=== PATIENT | female | born 1995 | race Caucasian/White ===

== ENCOUNTER 2020-10-16 21:18 | Emergency (ER) | payer OTHER ==
[2020-10-16 22:46] LABS: Absolute Lymphocytes (CBC) 1.6 K/uL (0.7-4.9); Basophils % 0.9 % (0-1.3); Lymphocytes % 35.8 % (15.3-44.8); MPV 8.3 fL (7.6-11.3); RBC Red Blood Cell Count 3.83 M/uL (3.86-4.86)
[2020-10-16 23:11] LABS: ALT/SGPT 18 U/L (12-78); AST/SGOT 12 U/L (15-37); Albumin 3.8 g/dL (3.4-5.0); BUN Blood Urea Nitrogen 16 mg/dL (7-18); Bicarbonate 26 mmol/L (21-32); Bilirubin Total 0.3 mg/dL (0.2-1.0); Glucose Level 83 mg/dL (74-106); Potassium 4.3 mmol/L (3.5-5.1); Protein, Total 6.9 g/dL (6.4-8.2); Sodium Level 142 mmol/L (136-145); Troponin (Emerg Dept Use Only) < 0.02 ng/mL (0.0-0.045)
[2020-10-16 23:12] LABS: Alkaline Phosphatase ND U/L (45-117)
[2020-10-16] MEDS ORDERED: NA CHLORIDE 0.9% 0 ML ONE (23:23)
--- NOTE | 2020-10-16 23:23 | ER ---
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 Coronavirus screen: Client denies travel out of the [place] in the last 14 days. At this time, the client does not indicate any symptoms associated with coronavirus-19. Ebola Screen: Patient negative for fever greater than or equal to 101.5 degrees Fahrenheit, and additional compatible Ebola Virus Disease symptoms Patient denies exposure to infectious person. Patient denies travel to an Ebola-affected area in the 21 days before illness onset. No symptoms or risks identified at this time. Initial Sepsis Screen: Does the patient meet any 2 criteria? No. Patient's initial sepsis screen is negative. Does the patient have a suspected source of infection? No. Patient's initial sepsis screen is negative. Risk Assessment: Do you want to hurt yourself or someone else? Patient reports no desire to harm self or others. Onset of symptoms was October 16, 2020. 21:41 Method Of Arrival: EMS: [facility]5 21:41 Acuity: ЮЛИЯ 3 dm5 Historical: - Allergies: 21:53 No Known Allergies; dm5 - Home Meds: 22:30 Seroquel 100 mg Oral tab 1 tab daily [Active]; Seroquel 200 mg Oral tab 1 tab nightly dm5 [Active]; levothyroxine 175 mcg tab 1 tab once daily [Active]; - PMHx: 21:53 Autism; Bipolar disorder; dm5 - PSHx: 21:53 None; dm5 - Family history:: not pertinent. Assessment: 22:40 Reassessment: updated guardian on POC. dm5 Vital Signs: 21:15 BP 121 / 75; Pulse 121; Resp 22; Temp 98.6; dm5 21:30 BP 108 / 76; Pulse 108; Resp 24; Pulse Ox 99% on R/A; dm5 21:45 BP 104 / 72; Pulse 104; Resp 25; Pulse Ox 98% on R/A; dm5 22:00 BP 101 / 71; Pulse 101; Resp 22; Pulse Ox 98% on R/A; dm5 22:15 BP 103 / 69; Pulse 103; Resp 20; Temp 98; Pulse Ox 99% on R/A; dm5 22:30 BP 109 / 84; Pulse 109; Resp 17; Pulse Ox 99% ; dm5 22:45 BP 94 / 68; Pulse 94; Resp 24; Pulse Ox 99% on R/A; dm5 23:00 BP 104 / 76; Pulse 104; Resp 20; Pulse Ox 99% on R/A; dm5 10/17 00:33 BP 128 / 77 LA Supine (man/reg); Pulse 79 LA; Resp 22 S; Temp 98.3(O); Pulse Ox 100% on jb5 R/A; ED Course: 10/16 21:26 Patient arrived in ED. dm5 21:38 Geoffrey Ackerman MD is Attending Physician. jah 21:41 Génesis Germain, RN is Primary Nurse. dm5 21:44 Triage completed. dm5 22:54 Chest Single View XRAY In Process Unspecified. EDMS 10/17 00:17 Inserted saline lock: 20 gauge in right antecubital area, using aseptic technique. jb5 Blood collected. 00:17 Warm blanket given. Diet tray ordered. PO fluids given. Verbal reassurance given. jb5 00:34 Removal of peripheral IV. Catheter intact, dressing applied. jb5 Administered Medications: 10/16 23:17 Drug: NS 0.9% 1000 ml Route: IV; Rate: 1 bolus; Site: right antecubital; dm5 23:24 Not Given (other intervention used.): NS 0.9% 500 ml IV at bolus once dm5 Outcome: 23:23 Discharge ordered by . [facility] 10/17 00:37 Patient left the ED. dm5 Signatures: Dispatcher [employer] Génesis Leslie, RN RN dm5 Geoffrey Ackerman MD MD cha Broussard, Jennifer jb5
--- NOTE | 2020-10-16 23:23 | EDPHYS ---
Physician Documentation [facility] Name: Morteza Santos Age: 25 yrs Sex: Female : 1995 Arrival Date: 10/16/2020 Time: 21:26 Bed 23 Private MD: ED Physician Geoffrey Ackerman HPI: 10/16 22:21 This 25 yrs old Female presents to ER via EMS with complaints of Chest Pain. jah 22:21 The patient or guardian reports chest pain that is located primarily in the anterior jah chest wall, bilaterally. The pain does not radiate. Associated signs and symptoms: Pertinent positives: cough. The chest pain is described as aching. Duration: The patient or guardian reports a single episode, that is still ongoing. Severity of pain: At its worst the pain was mild in the emergency department the pain is unchanged. The patient has not experienced similar symptoms in the past. Historical: - Allergies: 21:53 No Known Allergies; dm5 - Home Meds: 22:30 Seroquel 100 mg Oral tab 1 tab daily [Active]; Seroquel 200 mg Oral tab 1 tab nightly dm5 [Active]; levothyroxine 175 mcg tab 1 tab once daily [Active]; - PMHx: 21:53 Autism; Bipolar disorder; dm5 - PSHx: 21:53 None; dm5 - Family history:: not pertinent. ROS: 22:21 Constitutional: Negative for fever, chills, and weight loss, Eyes: Negative for injury, jah pain, redness, and discharge, ENT: Negative for injury, pain, and discharge, Neck: Negative for injury, pain, and swelling, Abdomen/GI: Negative for abdominal pain, nausea, vomiting, diarrhea, and constipation, Back: Negative for injury and pain, : Negative for injury, bleeding, discharge, and swelling, MS/Extremity: Negative for injury and deformity, Skin: Negative for injury, rash, and discoloration, Neuro: Negative for headache, weakness, numbness, tingling, and seizure, Psych: Negative for depression, anxiety, suicide ideation, homicidal ideation, and hallucinations, Allergy/Immunology: Negative for hives, rash, and allergies, Endocrine: Negative for neck swelling, polydipsia, polyuria, polyphagia, and marked weight changes, Hematologic/Lymphatic: Negative for swollen nodes, abnormal bleeding, and unusual bruising. 22:21 Cardiovascular: Positive for chest pain. 22:21 Respiratory: Positive for cough. Exam: 22:21 Constitutional: This is a well developed, well nourished patient who is awake, alert, jah and in no acute distress. Head/Face: Normocephalic, atraumatic. Eyes: Pupils equal round and reactive to light, extra-ocular motions intact. Lids and lashes normal. Conjunctiva and sclera are non-icteric and not injected. Cornea within normal limits. Periorbital areas with no swelling, redness, or edema. ENT: Nares patent. No nasal discharge, no septal abnormalities noted. Tympanic membranes are normal and external auditory canals are clear. Oropharynx with no redness, swelling, or masses, exudates, or evidence of obstruction, uvula midline. Mucous membranes moist. Neck: Trachea midline, no thyromegaly or masses palpated, and no cervical lymphadenopathy. Supple, full range of motion without nuchal rigidity, or vertebral point tenderness. No Meningismus. Chest/axilla: Normal chest wall appearance and motion. Nontender with no deformity. No lesions are appreciated. Cardiovascular: Regular rate and rhythm with a normal S1 and S2. No gallops, murmurs, or rubs. Normal PMI, no JVD. No pulse deficits. Respiratory: Lungs have equal breath sounds bilaterally, clear to auscultation and percussion. No rales, rhonchi or wheezes noted. No increased work of breathing, no retractions or nasal flaring. Abdomen/GI: Soft, non-tender, with normal bowel sounds. No distension or tympany. No guarding or rebound. No evidence of tenderness throughout. Back: No spinal tenderness. No costovertebral tenderness. Full range of motion. Skin: Warm, dry with normal turgor. Normal color with no rashes, no lesions, and no evidence of cellulitis. MS/ Extremity: Pulses equal, no cyanosis. Neurovascular intact. Full, normal range of motion. Neuro: Awake and alert, GCS 15, oriented to person, place, time, and situation. Cranial nerves II-XII grossly intact. Motor strength 5/5 in all extremities. Sensory grossly intact. Cerebellar exam normal. Normal gait. Psych: Awake, alert, with orientation to person, place and time. Behavior, mood, and affect are within normal limits. 22:21 Musculoskeletal/extremity: DVT Exam: No signs of deep vein thrombosis. no pain, no swelling, no tenderness, negative Homans' sign noted on exam, no appreciated bluish discoloration, no erythema, no increased warmth. 23:23 ECG was reviewed by the Attending Physician. [facility] Vital Signs: 21:15 BP 121 / 75; Pulse 121; Resp 22; Temp 98.6; dm5 21:30 BP 108 / 76; Pulse 108; Resp 24; Pulse Ox 99% on R/A; dm5 21:45 BP 104 / 72; Pulse 104; Resp 25; Pulse Ox 98% on R/A; dm5 22:00 BP 101 / 71; Pulse 101; Resp 22; Pulse Ox 98% on R/A; dm5 22:15 BP 103 / 69; Pulse 103; Resp 20; Temp 98; Pulse Ox 99% on R/A; dm5 22:30 BP 109 / 84; Pulse 109; Resp 17; Pulse Ox 99% ; dm5 22:45 BP 94 / 68; Pulse 94; Resp 24; Pulse Ox 99% on R/A; dm5 23:00 BP 104 / 76; Pulse 104; Resp 20; Pulse Ox 99% on R/A; dm5 10/17 00:33 BP 128 / 77 LA Supine (man/reg); Pulse 79 LA; Resp 22 S; Temp 98.3(O); Pulse Ox 100% on jb5 R/A; MDM: 10/16 21:38 Patient medically screened. [facility] 22:24 Differential diagnosis: abnormal EKG, coronary artery disease chest wall pain, jah pericarditis, stable angina, unstable angina. HEART Score: History: Slightly Suspicious (0), ECG: Normal (0), Age: < or = 45 years (0), Risk Factors: Troponin: < or = 1 x Normal Limit (0), Total Score = 0. The patient's deep vein thrombosis risk score was calculated as follows: Total Score: 0. This patient was found to be at low risk for a deep vein thrombosis by using the Well's assessment criteria. The patient's pulmonary embolism risk score was calculated as follows: Total Score: 0-2 points. This patient was found to be at low risk for a pulmonary embolism by using the Well's assessment criteria. CLEMENCIA Risk Score: TOTAL SCORE = 0. Data reviewed: vital signs, nurses notes, lab test result(s), EKG, radiologic studies, plain films. Data interpreted: cafeteria monitor: rate is 65 beats/min, rhythm is regular, Pulse oximetry: on room air. Test interpretation: by ED physician or midlevel provider: ECG, plain radiologic studies. Counseling: I had a detailed discussion with the patient and/or guardian regarding: the historical points, exam findings, and any diagnostic results supporting the discharge/admit diagnosis, lab results, radiology results, the need for outpatient follow up, for definitive care, a family practitioner. 10/16 22:20 Order name: CBC with Diff; Complete Time: 23:[address] [facility] 10/16 22:20 Order name: Comprehensive Metabolic Panel; Complete Time: 23:[address] [facility] 10/16 22:20 Order name: D-Dimer; Complete Time: 23:[address] [facility] 10/16 22:20 Order name: Troponin (emerg Dept Use Only); Complete Time: 23:[address] [facility] 10/16 22:20 Order name: Urine Dipstick-Ancillary (obtain specimen); Complete Time: 00:[address] [facility] 10/16 22:20 Order name: EKG; Complete Time: 22:[address] [facility] 10/16 22:20 Order name: Chest Single View XRAY [facility] 10/17 00:14 Order name: COVID-19/FLU A+B EDMS 10/17 00:14 Order name: Urine Dipstick--Ancillary (enter results) [facility] 10/17 00:16 Order name: Urine --Ancillary (enter results) [facility] 10/16 22:20 Order name: EKG - Nurse/Tech; Complete Time: 00:[address] [facility] 10/16 22:20 Order name: Urine Test (obtain specimen); Complete Time: 00:[address] [facility] EC:23 Rate is 59 beats/min. Rhythm is regular. QRS [place] is Normal. [place] interval is normal. QRS jah interval is normal. QT interval is normal. No Q waves. T waves are Normal. No ST changes noted. Clinical impression: Sinus bradycardia. Interpreted by me. Reviewed by me. Administered Medications: 23:17 Drug: NS 0.9% 1000 ml Route: IV; Rate: 1 bolus; Site: right antecubital; dm5 10/17 00:17 Follow up: IV Status: Completed infusion; IV Intake: 1000ml dm5 10/16 23:24 Not Given (other intervention used.): NS 0.9% 500 ml IV at bolus once dm5 Disposition: 10/16/20 23:23 Discharged to Home. Impression: Chest pain, unspecified, Bipolar disorder. - Condition is Stable. - Discharge Instructions: Nonspecific Chest Pain, Bipolar Disorder, Nonspecific Chest Pain, [id number]. - Medication Reconciliation Form, Thank You Letter, Antibiotic Education, Prescription Opioid Use form. - Follow up: Private Physician; When: 2 - 3 days; Reason: Recheck today's complaints, Continuance of care, Re-evaluation by your physician. - Problem is new. - Symptoms have improved. Signatures: Dispatcher [employer] [facility] Génesis Germain RN RN dm5 Geoffrey Ackerman MD MD cha Corrections: (The following items were deleted from the chart) 22:44 22:21 Influenza Screen (A \T\ B)+BA.LAB.BRZ ordered. EDFL EDMS 22:45 22:21 CORONAVIRUS+MR.LAB.BRZ ordered. EDFL EDMS 10/17 00:37 10/16 23:23 10/16/2020 23:23 Discharged to Home. Impression: Chest pain, unspecified; dm5 Bipolar disorder. Condition is Stable. Forms are Medication Reconciliation Form, Thank You Letter, Antibiotic Education, Prescription Opioid Use. Follow up: Private Physician; When: 2 - 3 days; Reason: Recheck today's complaints, Continuance of care, Re-evaluation by your physician. Problem is new. Symptoms have improved. jah
[2020-10-16] MEDS ORDERED: NA CHLORIDE 0.9% 1,000 ML ONE (23:24)
[2020-10-17 00:13] LABS: SARS-COV-2 RT PCR NEGATIVE (NEGATIVE)
[2020-10-17 00:23] LABS: Urine Blood NEGATIVE (NEG); Urine Glucose NEGATIVE (NEG); Urine Protein NEGATIVE (NEG); Urine Specific Gravity 1.025 (1.005-1.030); Urine pH 5.5 (5.0-7.0)
[2020-10-17 00:23] LABS: Urine Specific Gravity 1.025 (1.005-1.030)
[2020-10-17 00:51] VITALS: BP 128/77; TEMP 98.3; O2SAT 100
--- NOTE | 2020-10-17 08:47 | RAD REPORT ---
EXAM DESCRIPTION: RAD - Chest Single View - 10/16/2020 10:54 pm CLINICAL HISTORY: COUGH Chest pain. COMPARISON: No comparisons FINDINGS: Portable technique limits examination quality. The lungs are grossly clear. The heart is normal in size. No displaced fractures. IMPRESSION: No acute intrathoracic process suspected.
== END 2020-10-17 00:37 | disposition home or self-care (01) ==
LOC: ER 21:18
DX: R07.89 Other chest pain (principal); F31.9 Bipolar disorder, unspecified; Z20.822 Contact with and (suspected) exposure to COVID-19
CPT/HCPCS: 93005; 85025; 36415; 81025; 85379; 81003; 84484; 80053; 0240U; 71045; 96360; 99284; J7030; J7040

== ENCOUNTER 2025-04-28 23:52 | Emergency (ER) | payer OTHER, SELFPAY ==
[2025-04-29 00:47] LABS: Absolute Lymphocytes (CBC) 1.4 K/uL (0.7-4.9); Hematocrit 40.1 % (36.0-45.0); Hemoglobin 13.8 g/dL (12.0-15.0); MCH 30.8 pg (27.0-35.0); MCHC 34.5 g/dL (32.0-36.0); MCV 89.2 fL (80-100); MPV 8.2 fL (7.6-11.3); Nucleated RBC Absolute Count 0.0 (0-0); Nucleated Red Blood Cells % 0.0 % (0-0); RBC Red Blood Cell Count 4.49 M/uL (3.86-4.86); White Blood Count 8.30 thou/uL (4.3-10.9)
[2025-04-29 00:55] LABS: PT Prothrombin Time 13.0 SECONDS (10-13.0); PTT, Activated Partial Thromb 25.9 SECONDS (27.2-37.4); Protime INR 1.16
--- NOTE | 2025-04-29 01:00 | EDPHYS ---
Physician Documentation [facility] Name: Morteza Santos Age: 29 yrs Sex: Female : 1995 Arrival Date: 04/28/2025 Time: 23:52 Bed 16 Private MD: ED Physician Sean Lacey HPI: 04/29 00:09 This 29 yrs old Female presents to ER via Unassigned with complaints of sp4 depression . 20:08 Patient presents with police escort for complaint of acute depression and suicidal sp4 thoughts. 23:45 Patient reports she resides at the grandparents house and is disabled secondary to sp4 mental problems. Patient reports her mental problems have been untreated for a while. Patient reports she is unemployed. Patient reports food and senior care is being provided by her grandparents and her mother. Patient does have an iPhone which is provided by her mother. Patient usually preoccupied throughout the day by playing a role games on the PC computer without the Internet users. Patient states she has been feeling depressed for many years and has daily suicidal thoughts but no worsening lately. Patient states she went to the gas station today for a walk [place] of [place] however she was picked up by the police made her come into the emergency room for depressed mood and persistent suicidal thoughts. Patient denies suicide plan. Patient states her thoughts of suicide are quite chronic and have been present for years. 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 - Infectious Disease History:: Denies. - Social history:: Smoking status: Patient denies any tobacco usage or history of. - Family history:: not pertinent. ROS: 23:44 Constitutional: Negative for fever, chills, and weight loss, positive for depressed sp4 thoughts and positive for suicidal thoughts without plan 23:44 All other systems are negative, Exam: 23:45 Constitutional: Disheveled appearing female, otherwise no acute distress. sp4 Well-developed. Head/Face: Normocephalic, atraumatic. Eyes: Pupils equal round and reactive to light, extra-ocular motions intact. Lids and lashes normal. Conjunctiva and sclera are not injected. Cornea within normal limits. Periorbital areas with no swelling, redness, or edema. ENT: Nares patent. No nasal discharge, no septal abnormalities noted. Tympanic membranes are normal and external auditory canals are clear. Oropharynx with no redness, swelling, or masses, exudates, or evidence of obstruction, uvula midline. Mucous membranes moist. Neck: Trachea midline, no thyromegaly or masses palpated, and no cervical lymphadenopathy. Supple, full range of motion without nuchal rigidity, or vertebral point tenderness. Chest/axilla: Normal chest wall appearance and motion. Nontender with no deformity. No lesions are appreciated. Cardiovascular: Regular rate and rhythm with a normal S1 and S2. No gallops, murmurs, or rubs. No pulse deficits. Respiratory: Lungs have equal breath sounds bilaterally, clear to auscultation and percussion. No rales, rhonchi or wheezes noted. No increased work of breathing, no retractions or nasal flaring. Abdomen/GI: Soft, with normal bowel sounds. No distension or tympany. No guarding or rebound. No evidence of tenderness throughout. Back: No spinal tenderness. No costovertebral tenderness. Skin: Warm, dry with normal turgor. Normal color with no rashes, no lesions, and no evidence of cellulitis. MS/ Extremity: Pulses equal, no cyanosis. Neurovascular intact. Full, normal range of motion. Neuro: Awake and alert, GCS 15, oriented to person, place, time, and situation. Cranial nerves II-XII grossly intact. Motor strength 5/5 in all extremities. Sensory grossly intact. Psych: Awake, alert, with orientation to person, place and time. Patient is endorsing chronic depression chronic daily suicidal thoughts. Denied plan of suicide. Also denied means of committing suicide. Reports depressed mood, affect is mood congruent 23:45 ECG was [place] [address]/29/2025 normal sinus tachycardia Vital Signs: 00:16 BP 124 / 100; Pulse 101; Resp 18; Temp 98; Pulse Ox 97% ; Weight 69.4 kg; Height 5 ft. cp4 0 in. ; Pain 0/10; 01:43 BP 126 / 94; Pulse 94; Resp 18; Pulse Ox 98% ; cp4 00:16 Body Mass Index 29.88 (69.40 kg, 152.4 cm) cp4 00:16 Pain Scale: Adult cp4 Orwell Coma Score: 23:45 Eye Response: spontaneous(4). Motor Response: obeys commands(6). Verbal Response: sp4 oriented(5). Total: 15. MDM: 00:14 Medical Screening Exam initiated sp4 23:50 Differential diagnosis: drug withdrawal. acute psychotic break, depression, psychosis sp4 secondary to non-compliance. Data reviewed: vital signs, nurses notes, old medical records, lab test result(s), EKG. Consideration of Admission/Observation Escalation of care including admission/observation considered. ED course: Patient was offered transfer to the psychiatric facility. Patient declined transfer to the psychiatric facility. She states she was made to come here by police with a CLAUDIA. Based on chronicity of depression and suicidal thoughts patient not in acute danger to commit suicide based on my assessment. Patient declines transfer to psychiatric hospital. Patient prefers to go home. At this time we don't see a cause to commit the patient for psychiatric evaluation. Patient was picked up by her mother who also states that patient is chronically depressed. At this time stable for discharge. 04/29 00:10 Order name: Acetaminophen; Complete Time: 23:52 [facility] 04/29 00:10 Order name: Basic Metabolic Panel; Complete Time: 23:52 [facility] 04/29 00:10 Order name: CBC with Diff; Complete Time: 01:00 [facility] 04/29 00:10 Order name: ETOH Level; Complete Time: 23:52 [facility] 04/29 00:10 Order name: Hepatic Function; Complete Time: 23:52 [facility] 04/29 00:10 Order name: PT-INR; Complete Time: 00:57 [facility] 04/29 00:10 Order name: Test, Urine; Complete Time: 00:57 [facility] 04/29 00:10 Order name: Ptt, Activated; Complete Time: 00:57 [facility] 04/29 00:10 Order name: Salicylate; Complete Time: 23:52 [facility] 04/29 00:10 Order name: Urine Drug Screen; Complete Time: 23:52 [facility] 04/29 00:10 Order name: EKG - Nurse/Tech; Complete Time: 00:39 [facility] 04/29 00:10 Order name: IV Saline Lock; Complete Time: 00:39 [facility] 04/29 00:10 Order name: Labs collected and sent; Complete Time: 00:39 sp4 04/29 00:10 Order name: Suicide Precautions; Complete Time: 00:57 sp4 04/29 00:10 Order name: Suicide Screening ([place]); Complete Time: 00:57 sp4 EC:17 Rate is 102 beats/min. Rhythm is regular, Sinus tachycardia. QRS [place] is Normal. [place] sp4 interval is normal. QRS interval is normal. QT interval is normal. No Q waves. T waves are Normal. No ST changes noted. Clinical impression: No evidence of ischemia. Interpreted by me. Reviewed by me. Administered Medications: No medications were administered Disposition: 04/30 00:09 Chart complete. sp4 Disposition Summary: 04/29/25 00:59 Discharge Ordered Notes: Location: Home sp4 Problem: new sp4 Symptoms: have improved sp4 Condition: Stable sp4 Diagnosis - Major depressive disorder, recurrent, moderate sp4 - Chronic depression with acute exacerbation, history of mood disorder sp4 - Emotional Upset sp4 Followup: sp4 - With: Fam Rivas MD - When: 7 - 10 days - Reason: Recheck today's complaints Discharge Instructions: - Discharge Summary Sheet sp4 - Major Depressive Disorder, Adult sp4 Forms: - Patient Portal Instructions sp4 Signatures: Dispatcher [employer] Sean James MD MD sp4 April Jay 4 Corrections: (The following items were deleted from the chart) 04/29 00:10 00:10 ACETAMINOPHEN+C.LAB.BRZ ordered. EDMS EDMS 00:10 00:10 BASIC METABOLIC PANEL+C.LAB.BRZ ordered. EDMS EDMS 00:10 00:10 CBC+H.LAB.BRZ ordered. EDMS EDMS 00:10 00:10 ETHANOL+C.LAB.BRZ ordered. EDMS EDMS 00:10 00:10 HEPATIC FUNCTION+C.LAB.BRZ ordered. EDMS EDMS 00:10 00:10 PROTIME (+INR)+COAG.LAB.BRZ ordered. EDMS EDMS 00:10 00:10 Test, Urine+UC.LAB.BRZ ordered. EDMS EDMS 00:10 00:10 PTT, ACTIVATED+COAG.LAB.BRZ ordered. EDMS EDMS 00:10 00:10 SALICYLATE+C.LAB.BRZ ordered. EDMS EDMS 00:10 00:10 URINE DRUG SCREEN+UC.LAB.BRZ ordered. EDMS EDMS
--- NOTE | 2025-04-29 01:00 | ER ---
Nurse's Notes [facility] [place] Name: Morteza Santos Age: 29 yrs Sex: Female : 1995 Arrival Date: 04/28/2025 Time: 23:52 Bed 16 Private MD: Diagnosis: Major depressive disorder, recurrent, moderate;Chronic depression with acute exacerbation, history of mood disorder;Emotional Upset Presentation: 04/29 00:14 Chief complaint: states patient was suicidal with no plan but stated "she did not want cp4 her parents to have her body". Patient is on the spectrum and fearful to go to a psychiatric facility again. Coronavirus screen: Client denies travel out of the [place] in the last 14 days. At this time, the client does not indicate any symptoms associated with coronavirus-19. Ebola Screen: Patient negative for fever greater than or equal to 101.5 degrees Fahrenheit, and additional compatible Ebola Virus Disease symptoms Patient denies exposure to infectious person. Patient denies travel to an Ebola-affected area in the 21 days before illness onset. No symptoms or risks identified at this time. Initial Sepsis Screen: Does the patient meet any 2 criteria? No. Patient's initial sepsis screen is negative. Does the patient have a suspected source of infection? No. Patient's initial sepsis screen is negative. Risk Assessment: Do you want to hurt yourself or someone else? Patient reports desire/thoughts of hurting themselves or someone else. Provider notified. Onset of symptoms was April 28, 2025. 00:14 Method Of Arrival: Law Enforcement: Quintin Ramos cp4 00:14 Acuity: ЮЛИЯ 2 cp4 Triage Assessment: 00:16 General: Appears in no apparent distress. uncomfortable, Behavior is calm, cooperative, cp4 appropriate for age. Pain: Denies pain. EENT: No signs and/or symptoms were reported regarding the EENT system. Neuro: Level of Consciousness is awake, alert, obeys commands, Oriented to person, place, time, situation. Cardiovascular: Patient's skin is warm and dry. Rhythm is sinus tachycardia. Respiratory: Airway is patent Respiratory effort is even, unlabored. GI: No signs and/or symptoms were reported involving the gastrointestinal system. : No signs and/or symptoms were reported regarding the genitourinary system. Derm: No signs and/or symptoms reported regarding the dermatologic system. Musculoskeletal: No signs and/or symptoms reported regarding the musculoskeletal system. [employer]PER[employer]END[employer]: 00:16 LMP N/A - Irregular menses, Not cp4 Historical: - Allergies: 00:16 No Known Allergies; cp4 - PMHx: 00:16 Autism; Bipolar disorder; cp4 - Immunization history:: Adult Immunizations up to date. - Infectious Disease History:: Denies. - Social history:: Smoking status: Patient denies any tobacco usage or history of. - Family history:: not pertinent. Screenin:[address] [facility] ED Fall Risk Assessment (Adult) History of falling in the last 3 months, cp4 including since admission No falls in past 3 months (0 pts) Confusion or Disorientation No (0 pts) Intoxicated or Sedated No (0 pts) Impaired Gait No (0 pts) Mobility Assist Device Used No (0 pt) Altered Elimination No (0 pt) Score/Fall Risk Level 0 - 2 = Low Risk Oriented to surroundings, Maintained a safe environment, Assessed \\T\\ reinforced patient's understanding of fall precautions, Hourly rounding (assess needs \\T\\ fall precautionary measures) done. Abuse screen: Denies threats or abuse. Denies injuries from another. Nutritional screening: No deficits noted. Tuberculosis screening: No symptoms or risk factors identified. Never had TB. Assessment: 00:25 Reassessment: No changes from previously documented assessment. cp4 00:41 Reassessment: Patient states she has not been on medication for over a year and does cp4 not know what kind of psychiatric problems she has. 01:36 Reassessment: Patient called her mother and states that she is going to pick her up. cp4 Psych: 00:26 [place] Suicide Severity Screening: In the past month, have you wished you were cp4 or wished you could go to sleep and not wake up? Patient responds "yes." "In the past month, have you actually had any thoughts of killing yourself?" Patient responds "yes." "In your lifetime, have you ever done anything, started to do anything, or prepared to do anything to end your life?" Patient responds "yes." Patient reports suicidal intent occurred greater than 3 months prior. Subjective: Patient's mood is sad, Delusions are denied, Hallucinations are denied Having thoughts of. Objective: Patient is cooperative, Speech is normal, Affect is flat. Interventions: Removed personal items and placed in bag. Patient placed in hospital gown. Searched person for dangerous items. Urine collected and sent for urine drug test. Belonging list filled out. Safety Checks: Personal items have been removed. Door is open. No visitors are present at this time. Pt denies substance abuse. Commitment: Patient will be an involuntary commitment. Vital Signs: 00:16 BP 124 / 100; Pulse 101; Resp 18; Temp 98; Pulse Ox 97% ; Weight 69.4 kg; Height 5 ft. cp4 0 in. ; Pain 0/10; 01:43 BP 126 / 94; Pulse 94; Resp 18; Pulse Ox 98% ; cp4 00:16 Body Mass Index 29.88 (69.40 kg, 152.4 cm) cp4 00:16 Pain Scale: Adult cp4 Migdalia Coma Score: 23:45 Eye Response: spontaneous(4). Motor Response: obeys commands(6). Verbal Response: sp4 oriented(5). Total: 15. ED Course: 00:03 Patient arrived in ED. cp4 00:09 Sean Lacey MD is Attending Physician. sp4 00:16 Triage completed. cp4 00:16 Arm band placed on right wrist. Patient placed in an exam room, on a stretcher. cp4 00:25 Bed in low position. Side rails up X2. Provided Education on: suicidal ideation. cp4 00:25 No provider procedures requiring assistance completed. cp4 00:38 Inserted saline lock: 20 gauge in right antecubital area, using aseptic technique. oe Blood collected. Flushed with 10 mL NS. 00:39 EKG done, by ED staff, reviewed by Sean Lacey MD. oe 00:39 Acetaminophen Sent. oe 00:39 Basic Metabolic Panel Sent. oe 00:39 CBC with Diff Sent. oe 00:39 ETOH Level Sent. oe 00:39 Hepatic Function Sent. oe 00:39 PT-INR Sent. oe 00:40 Test, Urine Sent. oe 00:40 Ptt, Activated Sent. oe 00:40 Salicylate Sent. oe 00:40 Urine Drug Screen Sent. oe 00:58 Fam Rivas MD is Referral Physician. sp4 01:36 April Jay is Primary Nurse. cp4 01:36 intact, bleeding controlled, No redness/swelling at site. Pressure dressing applied. cp4 Administered Medications: No medications were administered Medication: 00:25 VIS not applicable for this client. cp4 Outcome: 00:59 Discharge ordered by . sp4 01:36 Discharged to home ambulatory, cp4 01:36 Condition: stable 01:36 Discharge instructions given to patient, family, Instructed on discharge instructions, follow up and referral plans. safety practices, Discharge plan completed and reviewed with resources to call. Demonstrated understanding of instructions, follow-up care, 01:43 Patient left the ED. cp4 Signatures: Bassem Mast Sergey, MD MD sp4 PotApril lorenz cp4
[2025-04-29 01:01] LABS: METHAMPHETAM NEGATIVE (NEGATIVE); THC Cannibis NEGATIVE (NEGATIVE)
[2025-04-29 01:11] LABS: ALT/SGPT 19 U/L (13-56); AST/SGOT 15 U/L (15-37); Albumin 4.4 g/dL (3.4-5.0); Albumin/Globulin Ratio 1.1 (1.1-1.8); Alkaline Phosphatase 93 U/L (45-117); Anion Gap 10.9 mEq/L (5.0-15.0); BUN Blood Urea Nitrogen 22 mg/dL (7-18); Bilirubin Indirect, Calculated 0.4 mg/dL (0.2-0.8); Globulin 4.0 g/dL (2.3-3.5); Glucose Level 98 mg/dL (74-106); Potassium 3.9 mEq/L (3.5-5.1)
[2025-04-29 02:05] VITALS: TEMP 98
[2025-04-29 02:07] VITALS: BP 126/94; O2SAT 98
== END 2025-04-29 01:43 | disposition home or self-care (01) ==
LOC: ER 23:52
DX: F33.1 Major depressive disorder, recurrent, moderate (principal); R45.89 Other symptoms and signs involving emotional state
CPT/HCPCS: 36415; 80048; 80076; 80143; 80179; 80307; 81025; 82077; 85025; 85610; 85730; 93005; 99285